=== PATIENT | male | born 1950 | race Caucasian/White ===

== ENCOUNTER 2023-08-11 14:03 | Emergency (ER) | payer OTHER, SELFPAY ==
[2023-08-11 14:23] VITALS: BP 139/84
[2023-08-11 14:50] LABS: % Basophils 0.9 % (0-2); % Eosinophils 1.1 % (0-6); % Immature Granulocytes 1.1 % (0-0.5); % Lymphocytes 19.4 % (20.5-51.1); % Neutrophils 62.5 % (42.2-75.2); Absolute Basophils 0.1 10^3/uL (0-0.2); Absolute Eosinophils 0.1 10^3/uL (0-0.7); Absolute Immature Granulocytes 0.1 10^3/uL (0-0.05); Absolute Lymphocytes 1.7 10^3/uL (1.2-3.4); Absolute Monocytes 1.3 10^3/uL (0.1-0.6); Absolute Neutrophils 5.6 10^3/uL (1.4-6.5); Hematocrit 47.8 % (39.0-52.0); Hemoglobin 16.5 g/dL (13.0-18.0); Mean Corp Hgb Conc. 34.5 g/dL (33.0-37.0); Mean Corpuscular Hgb 30.3 pg (27.0-31.0); Mean Corpuscular Volume 87.7 fL (80.0-94.0); Nucleated Red Blood Cells % 0 % (-); Platelet Count 208 10^3/uL (130-400); Red Blood Cell Count 5.45 10^6/uL (4.70-6.10); Red Cell Dist. Width 14.8 % (11.5-14.5); White Blood Cell Count 8.9 10^3/uL (4.8-10.8)
[2023-08-11 15:16] LABS: ALT (SGPT) 16 U/L (0-50); AST (SGOT) 28 U/L (17-59); Albumin 4.1 g/dl (3.5-5.0); Alkaline Phosphatase 71 U/L (38-126); Blood Urea Nitrogen 13 mg/dl (9-20); Calcium 9.2 mg/dl (8.4-10.2); Carbon Dioxide 25 mmol/L (22-30); Chloride 103 mmol/L (98-107); Glucose 107 mg/dl (70-99); Potassium 4.2 mmol/L (3.5-5.1); Sodium 135 mmol/L (135-145); Total Bilirubin 0.7 mg/dl (0.2-1.3); Total Protein 6.7 g/dl (6.3-8.2); eGFR > 60.00
[2023-08-11 15:35] VITALS: BP 142/85
[2023-08-11 16:00] VITALS: BP 143/90
[2023-08-11 17:16] VITALS: BP 149/82
[2023-08-11 18:00] VITALS: BP 127/87
--- NOTE | 2023-08-11 18:25 | ED.GENMED ---
History of Present Illness
General
Chief Complaint: Dizziness
Source: patient
Exam Limitations: none
Time Seen by Provider: 08/11/23 15:41
History of Present Illness
History of Present Illness:
73-year-old male who presents for evaluation of difficulty with his gait as well as an episode of speech disturbance. The patient states that he was on vacation in [place] and touring the last week of his vacation he started having difficulty with
his gait feeling off balance. He has had vertigo in the past but did not have any room spinning. Patient states he did not want to be seen in a [facility] hospital so waited till he got home. The patient states this has been ongoing for about 2 to
3 weeks. He states about 6 days ago had a very brief episode where he had slurring of his words. He states it was so brief that it may have only been about 4 words. Today he was coming into work and decided to get checked out. The patient denies
any progression of symptoms. He does report he has occasionally had some discomfort in the left neck up toward his head. Also a little bit in the back right side of his neck. No injury. No vomiting. No motor weakness. No vision changes. No
sensory changes. No chest pain. No palpitations.
Past History
Past History
ED Past Medical History: Cancer (Prostate) and Other (SBO, Diverticulitis)
ED Past Surgical History: Orthopedic ( Bilateral knee replacements, right hip replacement) and Other (prostatectomy, hernia)
Social History
Tobacco: Non-smoker
Alcohol: Occasional
Drug: None
Personal:
Living: with family
Employment: Retired
Family History
Family History: Other
Phy Exam
Physical Exam
Physical Exam:
CONSTITUTIONAL Patient alert and oriented to person, place and time. Well-appearing. Vital signs reviewed.
HEAD atraumatic, normocephalic.
EYES eyelids normal to inspection, Pupils equally round and reactive to light, Extraocular muscles intact, Conjunctiva normal, Sclera normal.
NECK normal range of motion, Trachea midline, no jugular venous distention.
RESPIRATORY CHEST No respiratory distress noted, Chest expansion equal, Bilateral breath sounds clear.
CARDIOVASCULAR regular rate and rhythm, Heart sounds normal.
BACK normal inspection, no obvious deformities
UPPER EXTREMITY range of motion normal, Motor strength normal, no cyanosis, no edema.
LOWER EXTREMITY range of motion normal, Motor strength normal, no cyanosis, no edema.
NEURO Speech normal, No focal motor deficits, Bhavna coma scale 15, Memory normal, Cranial Nerves intact to screening exam. Normal [id number]. No pronator drift.
SKIN skin warm, dry, and normal in color.
PSYCHIATRIC patient oriented to person place and time, Normal affect.
Course
Orders/Labs/Results
Orders:
Orders
08/11/23 14:26
Electrocardiogram (*1) Urgent
Reason for Study: Vertigo / Dizzy
08/11/23 14:27
CT Head W/o Iv Contrast Urgent
Comment: symptoms for 6 days.
Reason For Exam: headache, dizziness, 1 episode of slurred speech
EKG- Treatment ONCE
08/11/23 14:33
Complete Blood Count/With Diff Urgent
Comprehensive Metabolic Panel Urgent
08/11/23 16:18
CT Head & Neck Angio W/wo IV Urgent
Comment:
Reason For Exam: speech changes, neck pain, ataxia
Abnormal Lab Results
08/11/23
14:33
RDW 14.8 H %
(11.5-14.5)
Abs Immat Gran (auto) 0.1 H 10^3/uL
(0-0.05)
Absolute Monos (auto) 1.3 H 10^3/uL
(0.1-0.6)
Immature Gran % 1.1 H %
(0-0.5)
Lymphocytes % 19.4 L %
(20.5-51.1)
Monocytes % 15.0 H %
(1.7-9.3)
Glucose 107 H mg/dl
(70-99)
08/11/23 14:33
08/11/23 14:33
Vital Signs
Initial and Last Documented VS:
Initial Vital Signs
Temp Pulse Resp BP Pulse Ox
98.6 F 67 18 139/84 95
08/11/23 14:23 08/11/23 14:23 08/11/23 14:23 08/11/23 14:23 08/11/23 14:23
Last Documented Vital Signs
Temp Pulse Resp BP Pulse Ox
98.6 F 62 15 127/87 95
08/11/23 14:23 08/11/23 18:15 08/11/23 18:15 08/11/23 18:00 08/11/23 18:15
MDM/Problems Addressed
MDM/Problems Addressed:
Gait disturbance, speech disturbance
*Radiology
Radiology exam reviewed: preliminary read by ED provider (No obvious intracranial hemorrhage) and radiology read reviewed
*Pulse Oximetry
Patient hypoxic: no
*EKG
Interpreted by ED Provider?: Yes
Interpretation: normal
Rate: normal
Rhythm: sinus
Interval: normal interval
QRS Pattern: normal QRS
Ischemia: no ischemia
*Director Of Rehabilitation Interpretation
Rate: normal
Interpretation: normal
Rhythm: sinus
*Critical Care Note
Total Time (30-74mins, 75-104mins- exclusive of procedures): Not Applicable
Data Reviewed
Source: patient
Patient Management
Discussion with other providers: Stock Control Supervisor (Case discussed with neurology. )
Escalation/DeEscalation of care consider admission/obs:
Symptoms have been ongoing for a few weeks and speech disturbance was 6 days ago and was extremely brief. CT and CTA negative despite symptoms over the period of time. Case discussed with neurology who feels the patient can be managed as an
outpatient but will treat with aspirin 81 mg and Plavix 75 mg and neurology will follow-up in the office for outpatient studies. CTA shows no significant carotid stenosis. Patient educated and will return immediately for any progressive symptoms.
His gait is normal
ED Attending Note
-
Portions of this chart may have been created with voice recognition software.� Occasional wrong word or��sound alike� substitutions may have occurred due to the inherent limitations of voice recognition software.
Discharge Plan
Departure
Patient Disposition: Home (Routine Discharge)
Date of Disposition: 08/11/23
Time of Disposition: 18:46
Patient with high blood pressure during this ER visit?: No
Discharge Problem:
Abnormal gait
Instructions: Dizziness
Prescriptions:
New
aspirin 81 mg capsule
81 mg PO DAILY Qty: 30 0RF
clopidogrel [Plavix] 75 mg tablet
75 mg PO DAILY Qty: 30 0RF
No Action
diphenhydramine HCl [Banophen] 50 MG capsule
50 mg PO Q6HPRN PRN (Reason: hives, itch) Qty: 30 0RF
hydrocodone-acetaminophen 1 TABLET tablet
1 tab PO Q6HPRN PRN (Reason: SEVERE PAIN)
Patient Comments:
-PATIENT LASTED PICKED UP ON 01/08/20 # 40
fexofenadine [Oanh] 180 MG tablet
180 mg PO DAILY
propranolol 20 MG tablet
20 mg PO DAILY
pregabalin 75 MG capsule
75 mg BID
Patient Comments:
PATIENT LASTED PICKED UP ON 12/31/19 #60
acetaminophen 325 MG tablet
650 mg PO Q6HPRN PRN (Reason: MILD PAIN/FEVER)
hydrocodone-acetaminophen 1 TABLET tablet
1 tab PO Q4HPRN PRN (Reason: pain) Qty: 10 0RF
ciprofloxacin HCl [Cipro] 500 mg tablet
500 mg PO BID Qty: 14 0RF
metronidazole 500 mg tablet
500 mg PO TID Qty: 21 0RF
hydrocodone-acetaminophen 5-325 mg tablet
1 tab PO Q6H PRN (Reason: pain) Qty: 10 0RF
levofloxacin 750 mg tablet
750 mg PO DAILY Qty: 6 0RF
loperamide [Imodium A-D] 2 mg capsule
2 mg PO Q6H PRN (Reason: loose stool) Qty: 10 0RF
Referrals:
Alen Aquino MD [Active] -
Shayla Jefferson DO [Family Provider] -
Activity Restrictions/Additional Instructions:
Please see your doctor in the next 3 to 5 days for follow-up and reevaluation. In addition, please see neurology in follow-up in the next 2 weeks. Return immediately for difficulty with your vision, motor weakness, numbness, sensory changes,
worsening symptoms, speech changes or any other concerns.
Interventions
Interventions:
*Risk Screen - Suicide Last Done: 08/11/23 15:58
*General Assessment Last Done: 08/11/23 15:58
*Neglect/Abuse Screening Last Done: 08/11/23 15:58
ED- Fall Risk Assessment Last Done: 08/11/23 16:00
*ED COVID-19 Vaccine History Last Done: 08/11/23 15:58
ED- Neurological Assessment Last Done: 08/11/23 15:55
ED Swallowing Screen Last Done: 08/11/23 15:59
Discharge Date and Time
Print Language: AZERI
[2023-08-11] MEDS: PLAVIX 75 MG PO (18:51)
[2023-08-11] MEDS: LOW STRENGTH ASPIRIN 81 MG PO (18:51)
== END 2023-08-11 18:56 | disposition home or self-care (01) ==
LOC: EMR 14:03
PROVIDERS: Emergency Medicine; EMERGENCY PHYSICIAN Emergency Medicine; FAMILY PHYSICIAN Student in an Organized Health Care Education/Training Program
DX: R26.89 Other abnormalities of gait and mobility (principal); R47.81 Slurred speech; M54.2 Cervicalgia; R42 Dizziness and giddiness; K57.92 Diverticulitis of intestine, part unspecified, without perforation or abscess without bleeding; Z79.82 Long term (current) use of aspirin; Z96.653 Presence of artificial knee joint, bilateral; Z96.641 Presence of right artificial hip joint; Z85.46 Personal history of malignant neoplasm of prostate; Z90.79 Acquired absence of other genital organ(s); Z88.1 Allergy status to other antibiotic agents; Z88.0 Allergy status to penicillin; Z88.2 Allergy status to sulfonamides; Z91.048 Other nonmedicinal substance allergy status
CPT/HCPCS: 99285; 70450; 70496; 70498; 80053; 85025; 93005; Q9967

== ENCOUNTER → 2024-02-02 14:07 | Outpatient (REF) | payer OTHER, SELFPAY | LOC: PAVMRI 14:07 | PROVIDERS: ATTENDING PHYSICIAN Specialist | DX: R26.81 Unsteadiness on feet (principal) | CPT/HCPCS: 70551 ==

== ENCOUNTER → 2024-02-23 17:37 | Outpatient (REF) | payer OTHER, SELFPAY | LOC: MRI 17:37 | PROVIDERS: ATTENDING PHYSICIAN Specialist; FAMILY PHYSICIAN Internal Medicine | DX: M43.02 Spondylolysis, cervical region (principal) | CPT/HCPCS: 72141 ==

== ENCOUNTER → 2024-03-12 15:13 | Outpatient (REF) | payer OTHER, SELFPAY | LOC: RAD 15:13 | PROVIDERS: ATTENDING PHYSICIAN Family Medicine | DX: N28.1 Cyst of kidney, acquired (principal) | CPT/HCPCS: 76775 ==

== ENCOUNTER → 2024-12-04 15:22 | Outpatient (REF) | payer OTHER, SELFPAY | LOC: PAVMRI 15:22 | PROVIDERS: ATTENDING PHYSICIAN Physician Assistant Medical; FAMILY PHYSICIAN Family Medicine | DX: M54.16 Radiculopathy, lumbar region (principal) | CPT/HCPCS: 72148 ==

== ENCOUNTER 2025-01-24 13:11 | Inpatient (IN) | payer OTHER, SELFPAY ==
[2025-01-22] VITALS (14 sets, daily range): BP systolic 125–166; BP diastolic 70–96; BMI 30.6; BMI 33.8
--- NOTE | 2025-01-22 10:31 | ED.GENMED ---
History of Present Illness
<ELIEZER Bolaños - Last Filed: 01/24/25 09:03>
General
Chief Complaint: Breathing Problem
Source: patient
Exam Limitations: none
Time Seen by Provider: 01/22/25 09:58
Nursing documentation reviewed up to this point in time: agreed with
History of Present Illness
History of Present Illness:
Patient is a 75-year-old male male presents to the ER for evaluation. Patient reports last night while walking [id number] bathroom he became very short of breath and had pressure in the left neck and left chest. He has no known cardiac history
that he is aware of however he questions if he was once told if he has' plaque in his heart.' He is asymptomatic presently. He denies any history of CHF no lower extremity swelling.
Past History
<ELIEZER Bolaños - Last Filed: 01/24/25 09:03>
Past History
ED Past Medical History: Cancer (Prostate) and Other (SBO, Diverticulitis)
ED Past Surgical History: Orthopedic ( Bilateral knee replacements, right hip replacement) and Other (prostatectomy, hernia)
Social History
Tobacco: Non-smoker
Alcohol: Occasional
Drug: None
Personal:
Living: with family
Employment: Retired
Family History
Family History: Other
Phy Exam
<ELIEZER Bolaños - Last Filed: 01/24/25 09:03>
General Physical Exam
General Presentation: no apparent distress
General age: appears stated age
General Skin: warm and dry
General Habitus: elderly
General Mental: alert
Cardiovascular Exam
Cardiovascular Exam: regular rate/rhythm, no murmur and normal peripheral pulses
Pulmonary Exam
Pulmonary Exam: lungs clear and no respiratory distress
Neurological Exam
Neurological Exam: alert and oriented x3
Musculoskeletal Exam
Musculoskeletal Exam: other (No lower extremity swelling b/l )
Skin Exam
Skin Exam: normal color and warm/dry
Psychiatric Exam
Psychiatric Exam: normal mood/affect
Scores
<Mic Dawson PA-C - Last Filed: 01/22/25 21:20>
Heart Failure Risk
Heart Failure Risk Score: Not Applicable
Course
<ELIEZER Bolaños - Last Filed: 01/24/25 09:03>
Orders/Labs/Results
Orders:
Orders
01/22/25 09:52
Electrocardiogram (*1) Urgent
Reason for Study: Chest Pain
EKG- Treatment ONCE
01/22/25 10:06
CR Chest - 2 Views Urgent
Comment:
Reason For Exam: shortness of breath
01/22/25 10:20
Complete Blood Count/With Diff Urgent
Comprehensive Metabolic Panel Urgent
Magnesium Urgent
NT-proBNP Urgent
Troponin I Urgent
01/22/25 13:03
Electrocardiogram (*1) Urgent
Reason for Study: Chest Pain
EKG- Treatment ONCE
01/22/25 13:18
Troponin I Urgent
01/22/25 14:30
CT Chest PE Study Urgent
Comment:
Reason For Exam: SOB
01/22/25 Dinner
Regular
At Your Request: Limited Participation
Does patient need a safe tray?: No
01/22/25 16:44
Admit/Transfer Patient As Directed
Co-Sign Provider:
Level of Care: Observation services
Assign to:: Telemetry
Physician / Group: marshall
Diagnosis: stable angina
Reason for Telemetry: Arrhythmia
Date to Stop Telemetry: 01/25/25
Time to Stop Telemetry: 11:00
Code Status As Directed
Resuscitation Status: Full Code
PRN Pain Medication Management As Directed
May give lesser potent ordered pain med per pt: Yes
preference::
Protocol:: Medication orders for pain may be administered in a
manner that supports deferring to patient preference
when the pt is:
- Requesting an ordered lesser potent pain medication.
Least to most potent pain medications are defined
as: acetaminophen < NSAID < tramadol < opioids
(morphine, oxycodone, hydromorphone).
- Requesting a lesser dose of the same medication IF
ORDERED.
- Requesting a less intrusive route of administration
if both routes are prescribed by the provider (PO <
IV).
01/22/25 17:59
CARDIOLOGY CONSULT Routine
Consulting Provider: Ashley Nation
Was physician already notified: Yes
Activity As Directed
Activity Level: As Tolerated
Vital Signs As Directed
Frequency: Per unit guidelines
DX Deep Vein Thrombosis Video Routine
01/22/25 18:53
Naproxen [Naprosyn] 500 mg PO DAILYPRN PRN
01/22/25 19:14
Troponin I Q6H
01/22/25 20:00
Heparin 5,000 units SC Q12
Propranolol [Inderal] 20 mg PO BID
fluticasone propionate 1 spray NASAL BID
01/22/25 22:00
Pregabalin [Lyrica] 50 mg PO TID
01/22/25 23:59
Troponin I Q6H
01/23/25 06:22
Complete Blood Count/With Diff IN AM
Troponin I Q6H
01/23/25 08:00
Aspirin Chewable [Low Strength Aspirin] 81 mg PO DAILY
Loratadine [Claritin] 10 mg PO DAILY
01/25/25 11:00
DC Protocol for Telemetry ONCE
Abnormal Lab Results
01/22/25
10:20
Abs Immat Gran (auto) 0.1 H 10^3/uL
(0-0.05)
Absolute Neuts (auto) 6.9 H 10^3/uL
(1.4-6.5)
Absolute Monos (auto) 1.0 H 10^3/uL
(0.1-0.6)
Immature Gran % 1.0 H %
(0-0.5)
Lymphocytes % 15.9 L %
(20.5-51.1)
Monocytes % 10.4 H %
(1.7-9.3)
Creatinine 0.6 L mg/dL
(0.7-1.3)
01/22/25 10:20
01/22/25 10:20
Vital Signs
Initial and Last Documented VS:
Initial Vital Signs
Temp Pulse Resp BP Pulse Ox
97.6 F 70 20 166/89 98
01/22/25 09:47 01/22/25 09:47 01/22/25 09:47 01/22/25 09:47 01/22/25 09:47
Last Documented Vital Signs
Temp Pulse Resp BP Pulse Ox
98 F 65 18 126/71 93
01/24/25 08:33 01/24/25 08:33 01/24/25 08:33 01/24/25 08:33 01/24/25 08:33
Pasta Maker consulted with Physician
Pasta Maker consulted with physician?: Yes
Name of Physician Consulted: sidney
<Bandar Dinero, DO - Last Filed: 01/22/25 13:17>
Orders/Labs/Results
Orders:
Orders
01/22/25 09:52
Electrocardiogram (*1) Urgent
Reason for Study: Chest Pain
EKG- Treatment ONCE
01/22/25 10:06
CR Chest - 2 Views Urgent
Comment:
Reason For Exam: shortness of breath
01/22/25 10:20
Complete Blood Count/With Diff Urgent
Comprehensive Metabolic Panel Urgent
Magnesium Urgent
NT-proBNP Urgent
Troponin I Urgent
01/22/25 13:03
Electrocardiogram (*1) Urgent
Reason for Study: Chest Pain
EKG- Treatment ONCE
01/22/25 13:18
Troponin I Urgent
01/22/25 14:30
CT Chest PE Study Urgent
Comment:
Reason For Exam: SOB
01/22/25 Dinner
Regular
At Your Request: Limited Participation
Does patient need a safe tray?: No
01/22/25 16:44
Admit/Transfer Patient As Directed
Co-Sign Provider:
Level of Care: Observation services
Assign to:: Telemetry
Physician / Group: marshall
Diagnosis: stable angina
Reason for Telemetry: Arrhythmia
Date to Stop Telemetry: 01/25/25
Time to Stop Telemetry: 11:00
Code Status As Directed
Resuscitation Status: Full Code
PRN Pain Medication Management As Directed
May give lesser potent ordered pain med per pt: Yes
preference::
Protocol:: Medication orders for pain may be administered in a
manner that supports deferring to patient preference
when the pt is:
- Requesting an ordered lesser potent pain medication.
Least to most potent pain medications are defined
as: acetaminophen < NSAID < tramadol < opioids
(morphine, oxycodone, hydromorphone).
- Requesting a lesser dose of the same medication IF
ORDERED.
- Requesting a less intrusive route of administration
if both routes are prescribed by the provider (PO <
IV).
01/22/25 17:59
CARDIOLOGY CONSULT Routine
Consulting Provider: Ashley Nation
Was physician already notified: Yes
Activity As Directed
Activity Level: As Tolerated
Vital Signs As Directed
Frequency: Per unit guidelines
DX Deep Vein Thrombosis Video Routine
01/22/25 18:53
Naproxen [Naprosyn] 500 mg PO DAILYPRN PRN
01/22/25 19:14
Troponin I Q6H
01/22/25 20:00
Heparin 5,000 units SC Q12
Propranolol [Inderal] 20 mg PO BID
fluticasone propionate 1 spray NASAL BID
01/22/25 22:00
Pregabalin [Lyrica] 50 mg PO TID
01/22/25 23:59
Troponin I Q6H
01/23/25 06:22
Complete Blood Count/With Diff IN AM
Troponin I Q6H
01/23/25 08:00
Aspirin Chewable [Low Strength Aspirin] 81 mg PO DAILY
Loratadine [Claritin] 10 mg PO DAILY
01/25/25 11:00
DC Protocol for Telemetry ONCE
Abnormal Lab Results
01/22/25
10:20
Abs Immat Gran (auto) 0.1 H 10^3/uL
(0-0.05)
Absolute Neuts (auto) 6.9 H 10^3/uL
(1.4-6.5)
Absolute Monos (auto) 1.0 H 10^3/uL
(0.1-0.6)
Immature Gran % 1.0 H %
(0-0.5)
Lymphocytes % 15.9 L %
(20.5-51.1)
Monocytes % 10.4 H %
(1.7-9.3)
Creatinine 0.6 L mg/dL
(0.7-1.3)
01/22/25 10:20
01/22/25 10:20
Vital Signs
Initial and Last Documented VS:
Initial Vital Signs
Temp Pulse Resp BP Pulse Ox
97.6 F 70 20 166/89 98
01/22/25 09:47 01/22/25 09:47 01/22/25 09:47 01/22/25 09:47 01/22/25 09:47
Last Documented Vital Signs
Temp Pulse Resp BP Pulse Ox
98 F 65 18 126/71 93
01/24/25 08:33 01/24/25 08:33 01/24/25 08:33 01/24/25 08:33 01/24/25 08:33
<Mic Dawson PA-C - Last Filed: 01/22/25 21:20>
Orders/Labs/Results
Orders:
Orders
01/22/25 09:52
Electrocardiogram (*1) Urgent
Reason for Study: Chest Pain
EKG- Treatment ONCE
01/22/25 10:06
CR Chest - 2 Views Urgent
Comment:
Reason For Exam: shortness of breath
01/22/25 10:20
Complete Blood Count/With Diff Urgent
Comprehensive Metabolic Panel Urgent
Magnesium Urgent
NT-proBNP Urgent
Troponin I Urgent
01/22/25 13:03
Electrocardiogram (*1) Urgent
Reason for Study: Chest Pain
EKG- Treatment ONCE
01/22/25 13:18
Troponin I Urgent
01/22/25 14:30
CT Chest PE Study Urgent
Comment:
Reason For Exam: SOB
01/22/25 Dinner
Regular
At Your Request: Limited Participation
Does patient need a safe tray?: No
01/22/25 16:44
Admit/Transfer Patient As Directed
Co-Sign Provider:
Level of Care: Observation services
Assign to:: Telemetry
Physician / Group: marshall
Diagnosis: stable angina
Reason for Telemetry: Arrhythmia
Date to Stop Telemetry: 01/25/25
Time to Stop Telemetry: 11:00
Code Status As Directed
Resuscitation Status: Full Code
PRN Pain Medication Management As Directed
May give lesser potent ordered pain med per pt: Yes
preference::
Protocol:: Medication orders for pain may be administered in a
manner that supports deferring to patient preference
when the pt is:
- Requesting an ordered lesser potent pain medication.
Least to most potent pain medications are defined
as: acetaminophen < NSAID < tramadol < opioids
(morphine, oxycodone, hydromorphone).
- Requesting a lesser dose of the same medication IF
ORDERED.
- Requesting a less intrusive route of administration
if both routes are prescribed by the provider (PO <
IV).
01/22/25 17:59
CARDIOLOGY CONSULT Routine
Consulting Provider: Ashley Nation
Was physician already notified: Yes
Activity As Directed
Activity Level: As Tolerated
Vital Signs As Directed
Frequency: Per unit guidelines
DX Deep Vein Thrombosis Video Routine
01/22/25 18:53
Naproxen [Naprosyn] 500 mg PO DAILYPRN PRN
01/22/25 19:14
Troponin I Q6H
01/22/25 20:00
Heparin 5,000 units SC Q12
Propranolol [Inderal] 20 mg PO BID
fluticasone propionate 1 spray NASAL BID
01/22/25 22:00
Pregabalin [Lyrica] 50 mg PO TID
01/22/25 23:59
Troponin I Q6H
01/23/25 06:22
Complete Blood Count/With Diff IN AM
Troponin I Q6H
01/23/25 08:00
Aspirin Chewable [Low Strength Aspirin] 81 mg PO DAILY
Loratadine [Claritin] 10 mg PO DAILY
01/25/25 11:00
DC Protocol for Telemetry ONCE
Abnormal Lab Results
01/22/25
10:20
Abs Immat Gran (auto) 0.1 H 10^3/uL
(0-0.05)
Absolute Neuts (auto) 6.9 H 10^3/uL
(1.4-6.5)
Absolute Monos (auto) 1.0 H 10^3/uL
(0.1-0.6)
Immature Gran % 1.0 H %
(0-0.5)
Lymphocytes % 15.9 L %
(20.5-51.1)
Monocytes % 10.4 H %
(1.7-9.3)
Creatinine 0.6 L mg/dL
(0.7-1.3)
01/22/25 10:20
01/22/25 10:20
Vital Signs
Initial and Last Documented VS:
Initial Vital Signs
Temp Pulse Resp BP Pulse Ox
97.6 F 70 20 166/89 98
01/22/25 09:47 01/22/25 09:47 01/22/25 09:47 01/22/25 09:47 01/22/25 09:47
Last Documented Vital Signs
Temp Pulse Resp BP Pulse Ox
98 F 65 18 126/71 93
01/24/25 08:33 01/24/25 08:33 01/24/25 08:33 01/24/25 08:33 01/24/25 08:33
<ELIEZER Bolaños - Last Filed: 01/24/25 09:03>
MDM/Problems Addressed
Differential Diagnosis Includes:
Not limited to ACS angina, PE, chf
MDM/Problems Addressed:
Patient is a 75-year-old male presents to the ER for evaluation of shortness of breath and chest discomfort he had last night. He reports he was short breath left neck chest area. Patient presented awake alert no acute patient to cardiac troponin
initial 0.013 and repeat was improved. No acute findings on EKG. Patient on exam however became very short breath with ambulation with persistent symptoms patient will require mission will order CT chest to rule out PE. No prior history of PE in
the past . Lungs are clear he has no lower extremity swelling no history of CHF x-ray shows a very small left pleural effusion.
1540: Care of patient at this time transferred to JANINE Alfonso. pt will need admission for chest pain shortness of breath possible angina type symptoms however CT pending ordered to rule out PE dyspnea.
<ELIEZER Bolaños - Last Filed: 01/24/25 09:03>
*Radiology
Radiology exam reviewed: radiology read reviewed
*Pulse Oximetry
SaO2: 95
Oxygen Mode of Delivery: Room air
*EKG
Interpreted by ED Provider?: Yes
Interpretation: normal
Heart Rate: 64
Rate: normal
Rhythm: sinus
Ischemia: no ischemia
<Mic Dawson PA-C - Last Filed: 01/22/25 21:20>
*Pulse Oximetry
Patient hypoxic: no
*Critical Care Note
Total Time (30-74mins, 75-104mins- exclusive of procedures): Not Applicable
<Mic Dawson PA-C - Last Filed: 01/22/25 21:20>
Patient Management
Discussion with other providers: Hospitalist
Escalation/DeEscalation of care consider admission/obs:
Patient received in sign out pending CT scan results and plan for admission.
CTA negative for PE. Hospitalist team notified for admission of anginal symptoms
ED Attending Note
<ELIEZER Bolaños - Last Filed: 01/24/25 09:03>
-
Portions of this chart may have been created with voice recognition software.� Occasional wrong word or��sound alike� substitutions may have occurred due to the inherent limitations of voice recognition software.
<Bandar Dinero DO - Last Filed: 01/22/25 13:17>
ED Attending Note
Patient seen and examined by attending physician: Yes
I performed the substantive portion of visit, reviewed & personally made and approve the management plan that is documented in note by myself or NADEEM.: Yes
ED Attending Note:
Seen with PATIENT ADMITTING REPRESENTATIVE examined independently 75-year-old male presents with shortness of breath pressure into his neck, also slight headache and swelling above his left eye symptoms started about a day ago, he was hunting over the weekend felt okay, here he
is asymptomatic, EKG and troponin are noted, will repeat also ambulate is no history of heart failure or CAD
Discharge Plan
Departure
Patient Disposition: Admit
Date of Disposition: 01/22/25
Time of Disposition: 16:16
Presentation/result/management discussed w/ accepting MD/DO: Hospitalist
Discharge Problem:
Angina pectoris
Interventions
Interventions:
*Risk Screen - Suicide Last Done: 01/22/25 09:48
*General Assessment Last Done: 01/22/25 09:47
*Neglect/Abuse Screening Last Done: 01/22/25 09:47
*ED COVID-19 Vaccine History Last Done: 01/22/25 10:24
*ED Influenza Vaccine History Last Done: 01/22/25 10:24
[facility] Fall Risk Assessment Tool Last Done: 01/22/25 10:24
*Nursing Disposition Last Done: 01/22/25 17:28
ED- Cardiac Assessment Last Done: 01/22/25 10:24
ED- Pulmonary Assessment Last Done: 01/22/25 10:24
Discharge Date and Time
Discharge Date/Time: 01/22/25 17:59
[2025-01-22 10:34] LABS: Hematocrit 45.0 % (39.0-52.0); Hemoglobin 15.3 g/dL (13.0-18.0); Mean Corp Hgb Conc. 34.0 g/dL (33.0-37.0); Mean Corpuscular Volume 87.5 fL (80.0-94.0); Nucleated Red Blood Cells % 0 % (-); Platelet Count 228 10^3/uL (130-400); Red Cell Dist. Width 14.4 % (11.5-14.5)
[2025-01-22 10:58] LABS: ALT (SGPT) 16 U/L (0-50); AST (SGOT) 20 U/L (17-59); Albumin 3.9 g/dl (3.5-5.0); Alkaline Phosphatase 71 U/L (38-126); Blood Urea Nitrogen 12 mg/dl (9-20); Calcium 8.7 mg/dl (8.4-10.2); Carbon Dioxide 27 mmol/L (22-30); Chloride 106 mmol/L (98-107); Estimated Creatinine Clearance 113 ml/min; Glucose 93 mg/dl (70-99); Magnesium 2.1 mg/dl (1.6-2.3); Potassium 4.1 mmol/L (3.5-5.1); Sodium 137 mmol/L (135-145); Total Protein 6.7 g/dl (6.3-8.2); eGFR > 60.00
[2025-01-22 11:04] LABS: Troponin I 0.013 ng/ml
[2025-01-22 13:50] LABS: Troponin I < 0.012 ng/ml
--- NOTE | 2025-01-22 16:32 | EDRN ---
hospitalist currently at the pts bedside
--- NOTE | 2025-01-22 16:48 | HPS.HSE ---
Family Physician
-
Family Physician: Ozzy Escalona DO
Chief Complaint
-
neck/chest pain
History of Present Illness
75-year-old male past medical history of prostate cancer status post prostatectomy, prediabetes, diverticulosis, diverticulitis, hyperlipidemia, osteoarthritis, lumbar stenosis, chronic neuropathy, obesity, essential tremor, presenting with left
anterior neck pressure which radiates down to the left upper chest that started yesterday as well as shortness of breath that only occurs with exertion. He denies any symptoms currently or at rest. He did have sweating last night. He did have
dizziness since yesterday. He denies any posterior neck pain. Denies nausea or vomiting. Denies swallowing dysfunction at this time. Denies numbness or tingling in the arms or legs. Denies swelling in the legs.
He had pain like this previously in the past which resolved on its own.
He denies smoking or alcohol use or drugs.
Medical History
Past Medical History
Past Medical History: Reports Other (prostate cancer status post prostatectomy, prediabetes, diverticulosis, diverticulitis, hyperlipidemia, osteoarthritis, lumbar stenosis, chronic neuropathy, obesity, essential tremor)
Past Surgical History: Reports Other (Orthopedic ( Bilateral knee replacements, right hip replacement) and Other (prostatectomy, hernia))
Social History
Tobacco: Non-smoker
Alcohol: None
Drug: None
Family History
Family History: Not pertinent
Allergies / Home Medications
Allergies reflects when Allergies were last updated in [employer].
Home Medications with original date entered in [employer]
Allergy/Medication List:
Allergies
Allergy/AdvReac Type Severity Reaction Status Date / Time
erythromycin base Allergy kiki hyman Verified 01/22/25 09:52
ing
insect venom Allergy Anaphylaxis Verified 01/22/25 09:52
penicillin G Allergy Anaphylaxis Verified 01/22/25 09:52
Penicillins Allergy Anaphylaxis Verified 01/22/25 09:52
Sulfa (Sulfonamide Allergy Hives,swell Verified 01/22/25 09:52
Antibiotics) ing
sulfamethoxazole Allergy hives,swell Verified 01/22/25 09:52
ing
Tetracyclines Allergy hives,swell Verified 01/22/25 09:52
ing
trimethoprim Allergy PART OF Verified 01/22/25 09:52
BACTRIM
seasonal Allergy nasal Uncoded 01/22/25 09:52
congestion
Home Medications
propranolol 20 mg tablet 20 mg PO BID Tremors 01/18/20
fexofenadine 180 mg tablet 180 mg PO DAILY 01/22/25
fluticasone propionate 50 mcg/actuation nasal spray,suspension 1 spray intranasal BID Congestion 01/22/25
naproxen sodium 220 mg tablet (Aleve) 440 mg PO DAILYPRN PRN Back pain 01/22/25
pregabalin 50 mg capsule 50 mg PO TID Pain 01/22/25
Review of Systems
-
Constitutional: Reports No Symptoms
EENT: Reports No Symptoms
Respiratory: Reports No Symptoms
Cardiac: Reports No Symptoms
Abdomen/GI: Reports No Symptoms
: Reports No Symptoms
Musculoskeletal: Reports No Symptoms
Skin: Reports No Symptoms
Neurological: Reports No Symptoms
Endocrine: Reports No Symptoms
Hematologic/Lymphatic: Reports No Symptoms
Psych: Reports No Symptoms
Physical Exam
Vital Signs
Vital Signs
Temp Pulse Resp BP Pulse Ox
98.2 F 65 17 141/87 94
01/22/25 13:13 01/22/25 15:30 01/22/25 15:30 01/22/25 15:00 01/22/25 15:30
Physical Exam
General: Well Developed, Well Nourished and No Apparent Distress
HEENT: NormoCephalic, Moist mucous membranes and Atraumatic
Respiratory: Clear
Cardiac: S1/S2 and Regular Rhythm; No Murmur or Rub
GI: Soft, Non Tender, Non Distended and Normal Bowel Sounds; No Organomegaly
Rectal: Deferred by Provider
Musculoskeletal: No Clubbing, No Cyanosis and No Edema
Skin: No Rash
Neuro: Nonfocal/grossly intact
Laboratory Results
-
01/22/25 10:20
01/22/25 10:20
Laboratory Results
Total Bilirubin 0.6 mg/dl (0.2-1.3) 01/22/25 10:20
AST 20 U/L (17-59) 01/22/25 10:20
ALT 16 U/L (0-50) 01/22/25 10:20
Alkaline Phosphatase 71 U/L (38-126) 01/22/25 10:20
Troponin I < 0.012 ng/ml 01/22/25 13:18
Data Reviewed
-
Lab Data: Labs Reviewed by me
Old Records: Reviewed
Impression/Plan
-
IMPRESSION:
PLAN:
# Left chest/neck discomfort/shortness of breath suggestive of stable angina
-No symptoms currently, no tenderness of the neck or chest
- EKG shows normal sinus rhythm
- Troponin 0.013, decreased to under 0.012 on second
-Start aspirin
- Cardiology consulted
Prostate cancer status post prostatectomy
Prediabetes
- Not on medication
Diverticulosis
History of diverticulitis
Osteoarthritis
- Continue naproxen
Lumbar stenosis/chronic neuropathy
- Continue pregabalin
History of essential tremor
- Continue propranolol
Obesity
Full code
DVT prophylaxis�heparin
Regular diet
--- NOTE | 2025-01-22 17:26 | EDRN ---
this RN called the receiving unit and notified them that paper report was going to be tubed up
--- NOTE | 2025-01-22 17:43 | EDCM ---
Reviewed chart and met with pt bedside in ED> Lives with his in one story home, no GLADIS.
Independent in ADLs, personal care and ambulation at baseline. No assistive devices. 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
Confirms prescription coverage.
REED reviewed and signed, copy left with pt's .
No hx VN, hx Devine after knee replacements
PCP: Ozzy Escalona
Pharmacy: [facility]
Anticipate discharge home, CM will continue to follow for all discharge planning needs.
[2025-01-22] MEDS: LYRICA 50 MG PO ×2 (17:50→21:06)
--- NOTE | 2025-01-22 18:22 | PTCARENOTE ---
Rn materials coordinator- Patient's admission assessment completed remotely via phone. Patient qualifies as fall risk. Primary nurse Juanita informed of this and states she will implement appropriate interventions.
[2025-01-22 19:54] LABS: Troponin I 0.015 ng/ml
[2025-01-22] MEDS: INDERAL 20 MG PO (20:02)
[2025-01-23 01:26] LABS: Troponin I 0.014 ng/ml
[2025-01-23 03:35] VITALS: BP 124/58
[2025-01-23 06:48] LABS: Hematocrit 45.0 % (39.0-52.0); Hemoglobin 15.3 g/dL (13.0-18.0); Mean Corp Hgb Conc. 34.0 g/dL (33.0-37.0); Mean Corpuscular Volume 88.6 fL (80.0-94.0); Nucleated Red Blood Cells % 0 % (-); Platelet Count 206 10^3/uL (130-400); Red Cell Dist. Width 14.4 % (11.5-14.5)
[2025-01-23 07:19] LABS: Troponin I < 0.012 ng/ml
[2025-01-23 07:20] VITALS: BP 141/80
--- NOTE | 2025-01-23 08:14 | W.PN.HOSP.TC ---
Today's Communication/Plan
-
Echo done, follows cardiology recommendations.
Assessment / Plan
Assessment / Plan
Impression:
75-year-old male past medical history of prostate cancer status post prostatectomy, prediabetes, diverticulosis, diverticulitis, hyperlipidemia, osteoarthritis, lumbar stenosis, chronic neuropathy, obesity, essential tremor, presenting with left
anterior neck pressure which radiates down to the left upper chest that started yesterday as well as shortness of breath that only occurs with exertion. He denies any symptoms currently or at rest. He did have sweating last night. He did have
dizziness since yesterday. He denies any posterior neck pain. Denies nausea or vomiting. Denies swallowing dysfunction at this time. Denies numbness or tingling in the arms or legs. Denies swelling in the legs.
He had pain like this previously in the past which resolved on its own.
He denies smoking or alcohol use or drugs.
Assessment/plan:
Chest/Neck Discomfort & Exertional Dyspnea � Likely Stable Angina
Currently asymptomatic; no tenderness on exam.
EKG: Normal sinus rhythm.
Troponin: Initial 0.013 peaked to 0.015 then back to baseline <0.012.
Plan:
aspirin.
Cardiology consulted
Echocardiogram shows:
1. Ejection fraction is 55-60% by visual assessment.
2. Indexed left atrial volume is mildly abnormal (35-41 ml/m2).
3. Mild concentric left ventricular hypertrophy.
Follows cardio recommendations
Patient never had cardiac cath but had a stress test done years ago.
Prostate Cancer (s/p Prostatectomy)
No acute issues.
Prediabetes
Not on medication; monitor.
Diverticulosis / History of Diverticulitis
No acute symptoms.
Osteoarthritis
Continue naproxen.
Lumbar Stenosis / Chronic Neuropathy
Continue pregabalin.
Essential Tremor
Continue propranolol.
Obesity
Lifestyle modification counseling as appropriate.
CODE STATUS: Full code
DVT prophylaxis: Heparin
Diet: Regular diet
Disposition: Echo done, follows cardiology recommendations.
Total time spent on today's encounter was 51 minutes which included time spent in counseling the patient/family regarding diagnosis and treatment plan as listed above, goals of care, and symptom management. Case was discussed with nursing staff,
specialists, and care coordinators/case management. All labs and imaging personally reviewed by me. Remainder the time spent in detailed review of previous records, lab data, imaging, and other medical provider documentation.
Anticipated Discharge: 24 - 48 hours
Subjective/Interval History
-
Date of Service: January 23, 2025
Patient seen and examined at bedside, improved chest pain, still with shortness of breath on exertion, no abdominal pain, no nausea, no vomiting, no diarrhea or constipation.
Objective Data
-
Labs:
Laboratory Results
01/23/25 01/23/25
06:22 08:04
WBC 7.4
Hgb 15.3
Hct 45.0
Plt Count 206
Sodium Cancelled Pending
Potassium Cancelled Pending
Chloride Cancelled Pending
Carbon Dioxide Cancelled Pending
BUN Cancelled Pending
Creatinine Cancelled Pending
Glucose Cancelled Pending
Calcium Cancelled Pending
Vital Signs:
Vital Signs
Temp Pulse Resp BP Pulse Ox
97.9 F 56 18 124/58 94
01/23/25 03:35 01/23/25 03:35 01/23/25 03:35 01/23/25 03:35 01/23/25 03:35
I&O
01/22/25 01/23/25 01/24/25
06:59 06:59 06:59
Intake Total 480 / 480
Balance 480 / 480
Physical Exam
-
General: Well Developed, Well Nourished, No Apparent Distress and Comfortable
HEENT: Normocephalic, Atraumatic, Moist Mucous Membranes, No Ptosis, PERRLA and Nose Appears Normal
Respiratory: Clear to Auscultation and Non Labored Respirations
Cardiac: Regular Rhythm and S1/S2
Breast: Deferred by me
GI: Soft, Nontender, Nondistended and Normal Bowel Sounds
Genito-urinary: No Costovertebral Tender
Musculoskeletal: No Clubbing, No Cyanosis and No Edema
Skin: Warm
Neuro: Awake, Alert, Oriented, AO x 3 and No Motor Deficits
Psych: Calm
Data Reviewed
-
Diagnostic Radiology: Image personally visualized and interpreted and Report Reviewed by me
CT Scan: Image personally visualized and interpreted and Report Reviewed by me
Ultrasound: Image personally visualized and interpreted and Report Reviewed by me
MRI: Image personally visualized and interpreted and Report Reviewed by me
Medical Tests (Nuc Med, Echo etc): Image personally visualized and interpreted and Report Reviewed by me
Labs: Labs Reviewed by me
Old Records: Reviewed
[2025-01-23] MEDS: LOW STRENGTH ASPIRIN 81 MG PO (09:19)
[2025-01-23] MEDS: INDERAL 20 MG PO ×2 (09:19→19:49)
[2025-01-23] MEDS: CLARITIN 10 MG PO (09:19)
[2025-01-23] MEDS: LYRICA 50 MG PO ×3 (09:20→20:55)
--- NOTE | 2025-01-23 09:43 | CON.CAR ---
Addendum entered and electronically signed by Satya Guillaume MD 01/23/25 15:08:
Patient has documented sulfa allergy
Will give one-time dose of ethacrynic acid in place of Lasix
Addendum entered and electronically signed by Satya Guillaume MD 01/23/25 15:00:
I saw and examined the patient.
The Mud Grinder's note was reviewed and I agree with the note.
Comment: Briefly, 75-year-old man with no significant cardiovascular history presenting to the ER for evaluation of chest discomfort and dyspnea
It seems that his symptoms initially started as shortness of breath which came on the evening of 01/21/2025
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 At that time was also experiencing pressure in the shoulder/neck. He was admitted for possible ACS.
Troponin has been within normal limits x 5
ECGs here are not acutely ischemic
Underwent CTA with no evidence of PE
Echo with normal LV function and no regional wall motion abnormalities
Would tentatively plan for pharmacologic nuclear stress test in a.m. to evaluate for ischemia as a cause of his symptoms
Possible there is some component of heart failure given elevated proBNP of 1330
Will treat with IV Lasix x 1 and assess response
Rest per Keara Lin
Original Note:
Consultation
Consultation Request
Date/Time Consultation Requested: 01/22/25 at 1759
Date/Time Consultation Performed: 01/23/25 at 1004
Requesting Provider: Dr. Florencia Mcclure
Performing Provider: Dr. Guillaume
Reason for Consultation: Chest pain, SOB
Medical History
-
History of Present Illness:
Patient came to the ER yesterday with complaints of FULTON and chest pressure prompting admission and cardiology consultation. Patient came to the ER yesterday for episodes of FULTON, SOB and chest pressure. Patient reports he had a normal day on Tuesday
and then while sleeping on Tuesday night into Tuesday he awoke to empty his bladder, which is not unusual for him, and when he ambulated back to bed he became profoundly SOB and laid in bed trying to catch his breath. No chest pain with that
episode, but it took him almost an hour before his breathing returned to normal and he eventually fell asleep. When the patient woke up yesterday, Tuesday, he had FULTON with all activity and then started with episodes of chest pressure radiating from
his neck/jaw down into the left shoulder and chest. He has never had symptoms like this before. Patient then started with resting SOB while driving into work. 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
he came to the ER for evaluation. Patient was just hunting in [place] last week which included climbing, hiking and long walks without any symptoms of chest pain or SOB. He never has symptoms like this and it is unusual for him. Troponin level
normal x 5. ECG without acute ischemic change. Patient was admitted. Patient had intermittent episodes of chest discomfort overnight and has ongoing FULTON whenever he shifts himself in bed. CT of the chest was negative for PE. proBNP was 1330,
but no evidence of acute HF on CXR or CT of chest.
PMH:
Prediabetes
Essential tremor
Past Medical History
Past Medical History: Other (in HPI)
Past Surgical History: Orthopedic (Spinal fusion, SHANNA) and Urological (Prostatectomy)
Social History
Tobacco: Non-Smoker
Alcohol: Occasional
Drug: None
Personal:
Living: With Family
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
Family History
Family History: Other (No family history of CAD)
Allergies / Home Medications
Allergy/AdvReac Type Severity Reaction Status Date / Time
erythromycin base Allergy kiki hyamn Verified 01/22/25 09:52
ing
insect venom Allergy Anaphylaxis Verified 01/22/25 09:52
penicillin G Allergy Anaphylaxis Verified 01/22/25 09:52
Penicillins Allergy Anaphylaxis Verified 01/22/25 09:52
pollen extracts Allergy SEASONAL-NASAL Verified 12/02/25 18:48
CONGESTION
Sulfa (Sulfonamide Allergy Hives,swell Verified 01/22/25 09:52
Antibiotics) ing
sulfamethoxazole Allergy hives,swell Verified 01/22/25 09:52
ing
Tetracyclines Allergy hives,swell Verified 01/22/25 09:52
ing
trimethoprim Allergy PART OF Verified 01/22/25 09:52
BACTRIM
�Medication �Instructions �Recorded �Confirmed �Type
propranolol 20 mg tablet 20 mg PO BID Tremors 01/18/20 01/22/25 History
fexofenadine 180 mg tablet 180 mg PO DAILY 01/22/25 01/22/25 History
fluticasone propionate 50 1 spray intranasal BID Congestion 01/22/25 01/22/25 History
mcg/actuation nasal
spray,suspension
naproxen sodium 220 mg tablet 440 mg PO DAILYPRN PRN Back pain 01/22/25 01/22/25 History
(Aleve)
pregabalin 50 mg capsule 50 mg PO TID Pain 01/22/25 01/22/25 History
Review of Systems
-
History Source: Patient
All other systems: Negative unless noted
Physical Exam
Vital Signs
Temp Pulse Resp BP Pulse Ox
98.1 F 61 18 141/80 96
01/23/25 07:20 01/23/25 09:19 01/23/25 07:20 01/23/25 09:19 01/23/25 09:20
GEN: NAD, AAO x 3
HEENT: EOMI, MMM
LUNGS: RA. CTAB/L without wheeze or rales
CV: SR on telemetry. Reg, S1/S2, no murmur
ABD: ND
EXT: No edema B/L LE
NEURO: Gross non-focal
SKIN: No rash
Lab Results
01/23/25 06:22
Troponin I < 0.012 ng/ml 01/23/25 06:22
Oor-O-Hmqdgqqmcet Pept 1330 pg/ml 01/22/25 10:20
Impression / Plan
-
PCP: Dr. Ozzy Escalona
Cardiology: Previously saw cardiology at the [place] office
Impression:
Admitted with chest pain and SOB 01/22/2025
FULTON
Chest pain
Serially normal troponin levels
Prediabetes and hyperglycemia
Essential tremor
Echo 01/23/2025: EF 55 to 60%, no WMA, mild concentric LVH
Plan:
-Patient came to the ER yesterday with complaints of FULTON and chest pressure prompting admission and cardiology consultation. Patient came to the ER yesterday for episodes of FULTON, SOB and chest pressure. Patient reports he had a normal day on
Tuesday and then while sleeping on Tuesday night into Tuesday he awoke to empty his bladder, which is not unusual for him, and when he ambulated back to bed he became profoundly SOB and laid in bed trying to catch his breath. No chest pain with that
episode, but it took him almost an hour before his breathing returned to normal and he eventually fell asleep. When the patient woke up yesterday, Tuesday, he had FULTON with all activity and then started with episodes of chest pressure radiating from
his neck/jaw down into the left shoulder and chest. He has never had symptoms like this before. Patient then started with resting SOB while driving into work. 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
he came to the ER for evaluation. Patient was just hunting in [place] last week which included climbing, hiking and long walks without any symptoms of chest pain or SOB. He never has symptoms like this and it is unusual for him. Troponin level
normal x 5. ECG without acute ischemic change. Patient was admitted. Patient had intermittent episodes of chest discomfort overnight and has ongoing FULTON whenever he shifts himself in bed. CT of the chest was negative for PE. proBNP was 1330,
but no evidence of acute HF on CXR or CT of chest.
-ECG reviewed by me is SR without acute ST changes
-Telemetry reviewed by me shows SR without arrhythmia.
-Patient has new onset FULTON/resting SOB and chest pressure, but troponin serially normal and ECG without acute ischemic change.
-Check echo, ordered by me and coordinated with the echo department for a more urgent study. Echo report now completed and summarized above by me shows preserved EF without WMA. No significant valve disease.
-Reviewed with patient proceeding with inpatient exercise nuclear stress test to assess his symptoms. If patient has a clinical change would consider cardiac catheterization as an initial step, but for now stress test seems the next most
appropriate step.
-Check CVE, patient was not taking a statin prior to admission.
-Patient takes propranolol 20 mg BID for his history of tremor.
-There is evidence of mild concentric LVH and patient noted to have HTN in the ER yesterday, but improved today. Will continue to follow and consider adding BP med pending stress test results.
-Patient has a history of prediabetes, check HgbA1c, ordered by me
[2025-01-23 09:55] LABS: Blood Urea Nitrogen 7 mg/dl (9-20); Calcium 9.0 mg/dl (8.4-10.2); Carbon Dioxide 30 mmol/L (22-30); Chloride 102 mmol/L (98-107); Estimated Creatinine Clearance 95 ml/min; Glucose 103 mg/dl (70-99); Potassium 4.1 mmol/L (3.5-5.1); Sodium 136 mmol/L (135-145); eGFR > 60.00
[2025-01-23 11:48] VITALS: BP 131/75
[2025-01-23 14:10] LABS: Glycohemoglobin (HgbA1c) 6.2 % (4.0-5.9)
[2025-01-23 15:08] VITALS: BP 144/77
--- NOTE | 2025-01-23 15:20 | W.PN.UPDATE ---
Documented by User: Keara Lin PA-C 01/23/25 15:20
Update Note
Progress Note Update
Updated patient in his room, his is sitting bedside. We reviewed results of echo that showed essentially preserved EF without WMA or significant valve disease. We again reviewed the troponin levels and his symptoms leading up to admission.
Patient is agreeable to exercise nuclear stress test in the morning. We reviewed stress testing process and patient is in agreement. Orders placed by me.

Documented by User: Satya Guillaume MD 01/23/25 17:21
Update Note
Progress Note Update
Updated patient in his room, his is sitting bedside. We reviewed results of echo that showed essentially preserved EF without WMA or significant valve disease. We again reviewed the troponin levels and his symptoms leading up to admission.
Patient is agreeable to pharmacologic nuclear stress test in the morning. We reviewed stress testing process and patient is in agreement. Orders placed by me.
[2025-01-23] MEDS: EDECRIN 50 MG IV (15:23)
[2025-01-23 19:18] VITALS: BP 126/73
[2025-01-23 23:11] VITALS: BP 116/72
[2025-01-24] VITALS (7 sets, daily range): BP systolic 104–144; BP diastolic 62–77
[2025-01-24] MEDS: LEXISCAN 0.4 MG IV (09:54)
--- NOTE | 2025-01-24 10:56 | PTCARENOTE ---
Pt in Cardiac Services for Lexiscan test, test completed by Cardiac Services team. This RN spoke with patient after test completed, pt offers no complaints at present, denies chest pain, denies SOB except with exertion (as upon admission). O2 sat
is 95% on room air. Report called to floor, refer to Cardiac Services Record for details.
[2025-01-24] MEDS: CLARITIN 10 MG PO (12:19)
[2025-01-24] MEDS: LOW STRENGTH ASPIRIN 81 MG PO (12:19)
[2025-01-24] MEDS: INDERAL 20 MG PO ×2 (12:19→20:01)
[2025-01-24] MEDS: LYRICA 50 MG PO ×3 (12:22→22:57)
--- NOTE | 2025-01-24 13:12 | W.PN.HOSP.TC ---
Today's Communication/Plan
-
IV Lasix, if no improvement cardio recommending cardiac cath.
Assessment / Plan
Assessment / Plan
Impression:
75-year-old male past medical history of prostate cancer status post prostatectomy, prediabetes, diverticulosis, diverticulitis, hyperlipidemia, osteoarthritis, lumbar stenosis, chronic neuropathy, obesity, essential tremor, presenting with left
anterior neck pressure which radiates down to the left upper chest that started yesterday as well as shortness of breath that only occurs with exertion. He denies any symptoms currently or at rest. He did have sweating last night. He did have
dizziness since yesterday. He denies any posterior neck pain. Denies nausea or vomiting. Denies swallowing dysfunction at this time. Denies numbness or tingling in the arms or legs. Denies swelling in the legs.
He had pain like this previously in the past which resolved on its own.
He denies smoking or alcohol use or drugs.
Seen by cardiology and underwent a stress test which showed:
Perfusion imaging does not show clear evidence of ischemia. Inferior defect seen which is most consistent with soft tissue attenuation.
Inconclusive ECG for ischemia given the pharmacological study.
Probably normal study.
Systolic function is normal. The ejection fraction is 57%.
Stress Risk is moderate risk study (1 - 3% PA or /year) due to pharmacologic agent used.
Recommending diuresis
Assessment/plan:
Chest pain
Currently asymptomatic; no tenderness on exam.
EKG: Normal sinus rhythm.
Troponin: Initial 0.013 peaked to 0.015 then back to baseline <0.012.
Plan:
aspirin.
Cardiology consulted
Echocardiogram shows:
1. Ejection fraction is 55-60% by visual assessment.
2. Indexed left atrial volume is mildly abnormal (35-41 ml/m2).
3. Mild concentric left ventricular hypertrophy.
Follows cardio recommendations
Patient never had cardiac cath but had a stress test done years ago.
12/4
Stress test showed
Perfusion imaging does not show clear evidence of ischemia. Inferior defect seen which is most consistent with soft tissue attenuation.
Inconclusive ECG for ischemia given the pharmacological study.
Probably normal study.
Systolic function is normal. The ejection fraction is 57%.
Stress Risk is moderate risk study (1 - 3% PA or /year) due to pharmacologic agent used.
Recommending diuresis
Acute CHF Exacerbation:
Patient has acute on chronic diastolic congestive heart failure
Patient presented with shortness of breath.
BNP level is elevated at 1330
Troponin level normal
Continue IV diuresing in form of Lasix 40 mg daily
Daily weight.
Strict I's and O's.
Consulted cardiology.
Echocardiogram shows:
1. Ejection fraction is 55-60% by visual assessment.
2. Indexed left atrial volume is mildly abnormal (35-41 ml/m2).
3. Mild concentric left ventricular hypertrophy.
Prostate Cancer (s/p Prostatectomy)
No acute issues.
Prediabetes
Not on medication; monitor.
Hemoglobin A1c 6.2
Diverticulosis / History of Diverticulitis
No acute symptoms.
Osteoarthritis
Continue naproxen.
Lumbar Stenosis / Chronic Neuropathy
Continue pregabalin.
Essential Tremor
Continue propranolol.
Obesity
Lifestyle modification counseling as appropriate.
CODE STATUS: Full code
DVT prophylaxis: Heparin
Diet: Regular diet
Disposition: IV Lasix, if no improvement cardio recommending cardiac cath.
Total time spent on today's encounter was 55 minutes which included time spent in counseling the patient/family regarding diagnosis and treatment plan as listed above, goals of care, and symptom management. Case was discussed with nursing staff,
specialists, and care coordinators/case management. All labs and imaging personally reviewed by me. Remainder the time spent in detailed review of previous records, lab data, imaging, and other medical provider documentation.
Anticipated Discharge: 24 - 48 hours
Subjective/Interval History
-
Date of Service: January 24, 2025
Patient seen and examined at bedside, denies any chest pain , shortness of breath Improved, no abdominal pain, no nausea, no vomiting, no diarrhea or constipation.
Discussed with at bedside.
Patient had a stress test done today
Objective Data
-
Vital Signs:
Vital Signs
Temp Pulse Resp BP Pulse Ox
97.8 F 63 18 135/75 93
01/24/25 12:12 01/24/25 12:19 01/24/25 12:12 01/24/25 12:19 01/24/25 08:33
I&O
01/23/25 01/24/25 01/25/25
06:59 06:59 06:59
Intake Total 480 / 480 1440 / 1440
Output Total 2100 / 2100
Balance 480 / 480 -660 / -660
Physical Exam
-
General: Well Developed, Well Nourished, No Apparent Distress and Comfortable
HEENT: Normocephalic, Atraumatic, Moist Mucous Membranes, No Ptosis, PERRLA and Nose Appears Normal
Respiratory: Rales, Rhonchi and Non Labored Respirations
Cardiac: Regular Rhythm and S1/S2
Breast: Deferred by me
GI: Soft, Nontender, Nondistended and Normal Bowel Sounds
Genito-urinary: No Costovertebral Tender
Musculoskeletal: No Clubbing, No Cyanosis and No Edema
Skin: Warm
Neuro: Awake, Alert, Oriented, AO x 3 and No Motor Deficits
Psych: Calm
--- NOTE | 2025-01-24 14:20 | W.PN.CARDCBS ---
Addendum entered and electronically signed by Satya Guillaume MD 01/24/25 18:24:
I saw and examined the patient on morning rounds.
The Commercial Accountant's note was reviewed and I agree with the note.
Comment: Briefly, 75-year-old man with no significant cardiovascular history presenting to the ER for evaluation of chest discomfort and dyspnea
It seems that his symptoms initially started as shortness of breath which came on the evening of 01/21/2025
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 At that time was also experiencing pressure in the shoulder/neck. He was admitted for possible ACS.
Troponin has been within normal limits x 5
ECGs here are not acutely ischemic
Underwent CTA with no evidence of PE
Echo with normal LV function and no regional wall motion abnormalities
Lexiscan nuclear stress test earlier today with no evidence of ischemia
Unfortunately patient continues to experience severe shortness of breath with even minor activity. It seems that by enlarge his chest discomfort has resolved. Would attempt a more aggressive diuresis to see if this improves his symptoms. We
discussed his remote sulfa allergy. It seems that more recently he was able to tolerate sulfa drugs. Plan for IV Lasix.
Would consider alternative causes of dyspnea
If symptoms persist can consider coronary angiography for definitive assessment of obstructive coronary disease
Discussed with his at bedside
Original Note:
Today's Communication / Plan
-
Lexiscan nuclear stress test today without obvious ischemia, will attempt to diurese with Lasix 40 mg IV daily
If no improvement with diuresis could consider cardiac catheterization to exclude CAD
Impression / Plan
-
PCP: Dr. Ozzy Escalona
Cardiology: Previously saw cardiology at the [facility] office
Impression:
Admitted with chest pain and SOB 01/22/2025
Possible acute HFpEF
FULTON
Chest pain
Serially normal troponin levels
Prediabetes and hyperglycemia
Essential tremor
Echo 01/23/2025: EF 55 to 60%, no WMA, mild concentric LVH
Lexiscan nuclear stress test 01/24/2025: Perfusion imaging does not show clear evidence of ischemia, inferior defect seen which is most consistent with soft tissue attenuation, probably normal study, EF 57%
Plan:
-Patient was admitted with chest pain and cardiology consulted on 01/22/2025
-Following serially normal troponin levels the patient completed a Lexiscan nuclear stress test on 01/24/2025 that showed no evidence of ischemia and overall preserved EF. Patient had symptoms during stress test with Lexiscan injection including SOB.
-Echo as noted above showed preserved EF without WMA.
-Symptoms could also be due to volume overload, proBNP was in the garcia zone at 1330 on admission. Patient was given a dose of Edecrin 50 mg IV x 1 on 01/23/2025 and reports on 01/24/2025 that an allergy to sulfa was mild in the past and he would like
to try Lasix 40 mg IV now and then daily to see if diuresis improves his symptoms.
-If patient fails to improve with attempts at IV diuresis could consider cardiac catheterization to more definitively exclude CAD.
-Check CVE, orders placed by me. Patient was not taking a statin prior to admission.
-Patient takes propranolol 20 mg BID for his history of tremor.
-There is evidence of mild concentric LVH, but patient is mostly normotensive. No changes for now.
- HgbA1c 6.2% which is consistent with his known prediabetes. Carbohydrate control continues to be recommended.
HPI: Patient came to the ER yesterday with complaints of FULTON and chest pressure prompting admission and cardiology consultation. Patient came to the ER yesterday for episodes of FULTON, SOB and chest pressure. Patient reports he had a normal day on
Tuesday and then while sleeping on Tuesday night into Tuesday he awoke to empty his bladder, which is not unusual for him, and when he ambulated back to bed he became profoundly SOB and laid in bed trying to catch his breath. No chest pain with that
episode, but it took him almost an hour before his breathing returned to normal and he eventually fell asleep. When the patient woke up yesterday, Tuesday, he had FULTON with all activity and then started with episodes of chest pressure radiating from
his neck/jaw down into the left shoulder and chest. He has never had symptoms like this before. Patient then started with resting SOB while driving into work. 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
he came to the ER for evaluation. Patient was just hunting in [place] last week which included climbing, hiking and long walks without any symptoms of chest pain or SOB. He never has symptoms like this and it is unusual for him. Troponin level
normal x 5. ECG without acute ischemic change. Patient was admitted. Patient had intermittent episodes of chest discomfort overnight and has ongoing FULTON whenever he shifts himself in bed. CT of the chest was negative for PE. proBNP was 1330,
but no evidence of acute HF on CXR or CT of chest.
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
Subjective
Date of Service: January 24, 2025
Patient has ongoing FULTON
Objective
Labs:
01/23/25 06:22
01/23/25 08:32
Labs
Hgb 15.3 g/dL (13.0-18.0) 01/23/25 06:22
Hct 45.0 % (39.0-52.0) 01/23/25 06:22
Plt Count 206 10^3/uL (130-400) 01/23/25 06:22
Sodium 136 mmol/L (135-145) 01/23/25 08:32
Potassium 4.1 mmol/L (3.5-5.1) 01/23/25 08:32
BUN 7 mg/dl (9-20) L 01/23/25 08:32
Creatinine 0.7 mg/dL (0.7-1.3) 01/23/25 08:32
Glucose 103 mg/dl (70-99) H 01/23/25 08:32
Troponins
01/22/25 01/22/25 01/22/25
10:20 13:18 19:14
Troponin I 0.013 < 0.012 0.015 D
01/23/25 01/23/25
00:42 06:22
Troponin I 0.014 < 0.012
Vital Signs and I&O:
Vital Signs
Temp Pulse Resp BP Pulse Ox
97.8 F 63 18 135/75 93
01/24/25 12:12 01/24/25 12:19 01/24/25 12:12 01/24/25 12:19 01/24/25 08:33
Vital Signs
Temp Pulse Resp BP Pulse Ox
97.8 F 63 18 135/75 93
01/24/25 12:12 01/24/25 12:19 01/24/25 12:12 01/24/25 12:19 01/24/25 08:33
Intake & Output
01/22/25 01/23/25 01/24/25 01/25/25
06:59 06:59 06:59 06:59
Intake Total 480 / 480 1440 / 1440
Output Total 2100 / 2100
Balance 480 / 480 -660 / -660
Physical Exam
Physical Exam
GEN: NAD, AAO x 3
LUNGS: RA. CTA B/L without wheeze
CV: SR on telemetry.
[2025-01-24 15:42] LABS: HDL Cholesterol 45 mg/dl; LDL Cholesterol, Calculated 102 mg/dl; Very Low Density Lipoprotein 27 mg/dl (0-30)
--- NOTE | 2025-01-24 16:41 | CM ---
Pt continues on IV Lasix. Pt is not a candidate for VN for Chf education. Pt works here at
Plan: DC to home, no needs
[2025-01-24] MEDS: LASIX 40 MG IV (18:53)
[2025-01-25] VITALS (8 sets, daily range): BP systolic 98–118; BP diastolic 64–73; PULSE 66–71; BMI 32.4
[2025-01-25 08:52] LABS: Hematocrit 50.0 % (39.0-52.0); Hemoglobin 17.1 g/dL (13.0-18.0); Mean Corp Hgb Conc. 34.2 g/dL (33.0-37.0); Mean Corpuscular Volume 88.2 fL (80.0-94.0); Platelet Count 221 10^3/uL (130-400); Red Cell Dist. Width 14.5 % (11.5-14.5)
[2025-01-25] MEDS: CLARITIN 10 MG PO (09:07)
[2025-01-25] MEDS: INDERAL 20 MG PO ×2 (09:08→22:04)
[2025-01-25] MEDS: LOW STRENGTH ASPIRIN 81 MG PO (09:08)
[2025-01-25] MEDS: LYRICA 50 MG PO ×3 (09:08→22:02)
[2025-01-25 09:14] LABS: Blood Urea Nitrogen 15 mg/dl (9-20); Calcium 9.2 mg/dl (8.4-10.2); Carbon Dioxide 31 mmol/L (22-30); Chloride 99 mmol/L (98-107); Estimated Creatinine Clearance 81 ml/min; Glucose 107 mg/dl (70-99); Potassium 4.0 mmol/L (3.5-5.1); Sodium 135 mmol/L (135-145); eGFR > 60.00
[2025-01-25] MEDS: LASIX 40 MG IV (09:17)
--- NOTE | 2025-01-25 11:08 | W.PN.HOSP.TC ---
Addendum entered and electronically signed by Harriet King MD 01/25/25 15:36:
Returned to patient's bedside, his was at the bedside as well, no longer having any headache or chest pain or neck pain. He did take Tylenol. CTh negative, troponin negative, CXR with no abnormality. He states the pain that he was having was
similar to the pain that brought him in but less severe. Head pressure/neck pressure/chest pain/dyspnea at the same, discussed with RN as well concern for patient having high anxiety at the time of his symptoms. Regarding the cervical spine MRI
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 This may be the cause of his symptoms, it is chronic. He will
need to see outpatient spinal surgery/neurosurgery.
Original Note:
Today's Communication/Plan
-
Chest pain recurred, also headache, CTh and CXR/troponin/EKG
Assessment / Plan
Assessment / Plan
75M with prostate CA s/p prostatectomy, osteoarthritis, lumbar stenosis, chronic neuropathy, presenting with left anterior neck pressure which radiates down to the left upper chest that started yesterday as well as shortness of breath that only
occurs with exertion.
Chest pain
Troponin negative, EKG NSR. Telemetry monitoring with no events.
Cardiology consulted, Lexiscan performed 01/24, negative for ischemia, EF 57%. Lipid panel WNL
Cardiology recommended trial of IV diuretic
Chest pain recurred 01/25, repeat troponin, CXR, EKG
Acute CHF Exacerbation, HFpEF
BNP level is elevated at 1330
Unclear trigger
Continue IV Lasix 40 mg daily
Daily weight.
Strict I's and O's.
Echocardiogram shows EF 55-60%, Mild concentric LVH
Not on any GDMT
Headache/neck pain
No neurodeficits
Check CT head
Tylenol
Reviewed previous records, patient had MRI in February which showed cyst on C-spine
Prostate Cancer (s/p Prostatectomy)
Outpatient follow-up
Prediabetes
Hgb A1c 6.2%, outpatient follow-up with PCP
Consider SGLT2i given HFpEF
Lumbar Stenosis / Chronic Neuropathy
pregabalin.
Essential Tremor
propranolol
DVT PPx
Heparin SC
Anticipated Discharge: 24 - 48 hours
Subjective/Interval History
-
Date of Service: January 25, 2025
Patient seen in a.m., reported dyspnea with exertion even with conversation, denied chest pain. About 2 hours later started having pressure and had/neck/back with some lightheadedness some tightness in his chest, sweats. Symptoms improved except
for headache. Discussed with RN plan as documented.
Objective Data
-
Labs:
Laboratory Results
01/25/25
08:32
WBC 11.2 H
Hgb 17.1
Hct 50.0
Plt Count 221
Sodium 135
Potassium 4.0
Chloride 99
Carbon Dioxide 31 H
BUN 15
Creatinine 0.8
Glucose 107 H
Calcium 9.2
Vital Signs:
Vital Signs
Temp Pulse Resp BP Pulse Ox
98.1 F 66 16 113/68 92
01/25/25 07:53 01/25/25 07:53 01/25/25 07:53 01/25/25 09:17 01/25/25 07:53
I&O
01/24/25 01/25/25 01/26/25
06:59 06:59 06:59
Intake Total 1440 / 1440 960 / 960
Output Total 2100 / 2100 1000 / 1000
Balance -660 / -660 -40 / -40
Review of Systems
-
History Source: Patient
All other systems: Reviewed and negative
Physical Exam
-
General: No Apparent Distress
HEENT: Moist Mucous Membranes, Anicteric and PERRLA
Respiratory: Clear to Auscultation; Negative Wheezes, Rales or Rhonchi
Cardiac: Regular Rhythm and S1/S2; Negative Murmur, Rub or Gallop
GI: Soft, Nontender, Nondistended and Normal Bowel Sounds
Musculoskeletal: No Edema
Skin: Warm and Dry; Negative Rash, Ulcers or Lesions
Neuro: Awake and AO x 3
Hematologic / Lymphatic: No Lymphadenopathy
Psych: Calm
Data Reviewed
-
CT Scan: Report Reviewed by me and Discussed with Patient
Labs: Labs Reviewed by me and Discussed with Patient
Old Records: Reviewed
[2025-01-25] MEDS: TYLENOL 650 MG PO (11:20)
[2025-01-25 11:52] LABS: Troponin I < 0.012 ng/ml
--- NOTE | 2025-01-25 12:24 | W.PN.CARDCBS ---
Addendum entered and electronically signed by Meng Landin MD 01/25/25 15:49:
75-year-old man with chest discomfort and dyspnea, had CT scan of chest negative for pulmonary embolism, proBNP 1330, had sestamibi study with normal perfusion yesterday. Echocardiogram relatively unremarkable. Troponin has been negative.
PMH: Hyperglycemia, essential tremor, spinal fusion, total hip arthroplasty, prostatectomy current medications:
Medications: Lyrica 50 mg 3 times daily, subcu heparin, Inderal 20 mg twice daily, aspirin 81 mg a day, furosemide 40 mg IV twice daily
Episode this morning dyspnea he has neck tightness that feeling like 'his head is being inflated by a balloon.'
He has a history of rupturing both biceps tendons and has carpal tunnels, has undergone cervical laminectomy, low back pain no neuropathy
He feels as if furosemide has helped him
98/66, pulse 73, respiratory rate 16, Weight is 88.2 kg, similar to admission, peak weight was 92.1 kg
head neck exam unremarkable, lungs are clear, cardiac exam without obvious murmurs abdomen benign JVD okay, not much edema
White count 11.2, BUN and creatinine 15 and 0.8, potassium 4
ECG with symptoms: No acute changes
Impression:
Neck tightness/dyspnea
Possible HFpEF
Hyperglycemia
Essential tremor
Plan:
He has a perplexing complex of symptoms. No classic angina and based on sestamibi study I doubt that he has obstructive CAD. Not classic for reflux though if he were having globus pharyngeus related to GERD that could account for his presentation.
Will add PPI.
Coronary artery spasm seems relatively unlikely.
If he is having new onset HFpEF that could explain episodic dyspnea, and it is interesting that he has ruptured both biceps and has had a laminectomy and also bilateral carpal tunnels. ATTR cardiomyopathy is a potential consideration. We can check
an echo with strain.
For now continue IV furosemide. Would be reluctant to send him for cardiac catheterization. If he seems relatively stable he could potentially be discharged tomorrow.
Original Note:
Today's Communication / Plan
-
Symptomatically improved from shortness of breath standpoint with IV diuresis, continue diuresis
Renal function electrolytes stable
Episode of left-sided neck pain as well as tightness in head of unclear etiology
Check orthostatic vitals
Impression / Plan
-
PCP: Dr. Ozzy Escalona
Cardiology: Previously saw cardiology at the [place] office
Impression:
Admitted with chest pain and SOB 01/22/2025
Possible acute HFpEF
FULTON
Chest pain
Serially normal troponin levels
Prediabetes and hyperglycemia
Essential tremor
Echo 01/23/2025: EF 55 to 60%, no WMA, mild concentric LVH
Lexiscan nuclear stress test 01/24/2025: Perfusion imaging does not show clear evidence of ischemia, inferior defect seen which is most consistent with soft tissue attenuation, probably normal study, EF 57%
Plan:
-Patient was admitted with chest pain and cardiology consulted on 01/22/2025
-Troponin has been within normal limits x 6. ECGs here are not acutely ischemic
-Underwent CTA 01/22/25 with no evidence of PE or dissection. 'There are likely coronary artery calcifications, limited by contrast.'
-Echo 01/23/2025 with normal LV function and no regional wall motion abnormalities
-Lexiscan nuclear stress test 01/24/2025 with no evidence of ischemia and overall preserved EF
-Symptoms could also be due to volume overload, proBNP was in the garcia zone at 1330 on admission. Attempt of diuresis with Edecrin 50 mg IV x 1 on 01/23/2025 and reported allergy to sulfa was mild in the past. Patient has received 2 doses of Lasix
01/24 and 01/25/2025. BUN/creatinine stable 15/0.8 and stable electrolytes. Weight on admission reported both at 195 and 203. Current weight 194 on bed scale. Should repeat standing scale.
-Patient does note symptomatic improvement of shortness of breath with IV diuresis.
-Lipids 01/23/2025 prestatin TC 174, HDL 45, LDL 102, triglycerides 136
-Patient takes propranolol 20 mg BID for his history of tremor.
-There is evidence of mild concentric LVH, but patient is mostly normotensive. No changes for now.
- HgbA1c 6.2% which is consistent with his known prediabetes. Carbohydrate control continues to be recommended.
-Per Nursing and patient report around 11 AM on 01/25 he had an episode where he felt throbbing in his neck then had a tightness in his head and felt his eyes a little watery but denied visual changes, feeling of syncope. He went for head CT which
was unremarkable as well as chest x-ray that showed no acute abnormality. I personally reviewed telemetry starting at 10:55 am to 11:15 am and there was no associated arrhythmias or heart rate variations. Patient currently feels back to baseline.
Patient does report he had an MRI of brain in 2023 that showed cervical disc disease. Per review of MRI January 2025 this demonstrated severe degenerative disc at C3/C4 and C4/C5 with large disc osteophyte causing moderate spinal cord compression
and central canal stenosis. He also had MRI of cervical spine in February 2024 which showed ovoid cyst in upper cervical spine posterior to the dens and light left lateral mass of C1 measuring 9 x 5 mm without mass effect. As well as moderate
spinal canal stenosis of C3/C4 and C4/C5. Possibly this is being exacerbated by lying in bed for several days. Defer treatment to hospitalist service
- Check orthostatic vitals
-
HPI01/22/2025:
Patient came to the ER yesterday with complaints of FULTON and chest pressure prompting admission and cardiology consultation. Patient came to the ER yesterday for episodes of FULTON, SOB and chest pressure. Patient reports he had a normal day on
Tuesday and then while sleeping on Tuesday night into Tuesday he awoke to empty his bladder, which is not unusual for him, and when he ambulated back to bed he became profoundly SOB and laid in bed trying to catch his breath. No chest pain with that
episode, but it took him almost an hour before his breathing returned to normal and he eventually fell asleep. When the patient woke up yesterday, Tuesday, he had FULTON with all activity and then started with episodes of chest pressure radiating from
his neck/jaw down into the left shoulder and chest. He has never had symptoms like this before. Patient then started with resting SOB while driving into work. 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
he came to the ER for evaluation. Patient was just hunting in [place] last week which included climbing, hiking and long walks without any symptoms of chest pain or SOB. He never has symptoms like this and it is unusual for him. Troponin level
normal x 5. ECG without acute ischemic change. Patient was admitted. Patient had intermittent episodes of chest discomfort overnight and has ongoing FULTON whenever he shifts himself in bed. CT of the chest was negative for PE. proBNP was 1330,
but no evidence of acute HF on CXR or CT of chest.
Progress Note - Laminator Hand
Subjective
Date of Service: January 25, 2025
Patient seen and examined. Patient resting comfortably in bed. Nursing and patient report around 11 AM he had an episode where he felt throbbing in his neck then had a tightness in his head and felt his eyes a little watery but denied visual
changes, feeling of syncope. He went for head CT which was unremarkable as well as chest x-ray that showed no acute abnormality. I personally reviewed telemetry starting at 10:55 am to 11:15 am and there was no associated arrhythmias or heart rate
variations. Patient currently feels back to baseline
Patient does report symptomatically he feels better with diuresis
Objective
Labs:
01/25/25 08:32
01/25/25 08:32
Labs
Hgb 17.1 g/dL (13.0-18.0) 01/25/25 08:32
Hct 50.0 % (39.0-52.0) 01/25/25 08:32
Plt Count 221 10^3/uL (130-400) 01/25/25 08:32
Sodium 135 mmol/L (135-145) 01/25/25 08:32
Potassium 4.0 mmol/L (3.5-5.1) 01/25/25 08:32
BUN 15 mg/dl (9-20) 01/25/25 08:32
Creatinine 0.8 mg/dL (0.7-1.3) 01/25/25 08:32
Glucose 107 mg/dl (70-99) H 01/25/25 08:32
Troponins
01/22/25 01/22/25 01/23/25
13:18 19:14 00:42
Troponin I < 0.012 0.015 D 0.014
01/23/25 01/25/25
06:22 11:20
Troponin I < 0.012 < 0.012
Vital Signs and I&O:
Vital Signs
Temp Pulse Resp BP Pulse Ox
98.1 F 73 16 98/66 93
01/25/25 10:52 01/25/25 10:52 01/25/25 10:52 01/25/25 10:52 01/25/25 10:52
Vital Signs
Temp Pulse Resp BP Pulse Ox
98.1 F 73 16 98/66 93
01/25/25 10:52 01/25/25 10:52 01/25/25 10:52 01/25/25 10:52 01/25/25 10:52
Intake & Output
01/23/25 01/24/25 01/25/25 01/26/25
06:59 06:59 06:59 06:59
Intake Total 480 / 480 1440 / 1440 960 / 960
Output Total 2100 / 2100 1000 / 1000
Balance 480 / 480 -660 / -660 -40 / -40
Physical Exam
Physical Exam
GEN: No distress, awake, Ox3
HEENT: supple, anicteric, mmm
LUNGS: CTA, no wheezes/rales
CV: Reg, S1/S2, no murmur, rub or gallop
ABD: soft, BS+, NT/ND
EXT: No edema, clubbing or cyanosis
NEURO: Gross non-focal
SKIN: No rash, warm, dry, pink
[2025-01-25] MEDS: PROTONIX 40 MG PO (17:02)
[2025-01-26 03:22] VITALS: BP 101/50
[2025-01-26 06:00] VITALS: BMI 32.2
[2025-01-26 07:41] VITALS: BP 121/70
[2025-01-26 07:42] LABS: Hematocrit 50.2 % (39.0-52.0); Hemoglobin 16.9 g/dL (13.0-18.0); Mean Corp Hgb Conc. 33.7 g/dL (33.0-37.0); Mean Corpuscular Volume 87.6 fL (80.0-94.0); Platelet Count 210 10^3/uL (130-400); Red Cell Dist. Width 14.4 % (11.5-14.5)
[2025-01-26 08:18] LABS: Blood Urea Nitrogen 18 mg/dl (9-20); Calcium 9.1 mg/dl (8.4-10.2); Carbon Dioxide 32 mmol/L (22-30); Chloride 98 mmol/L (98-107); Estimated Creatinine Clearance 72 ml/min; Glucose 96 mg/dl (70-99); Potassium 4.6 mmol/L (3.5-5.1); Sodium 134 mmol/L (135-145); eGFR > 60.00
--- NOTE | 2025-01-26 08:32 | W.PN.CARDCBS ---
Today's Communication / Plan
-
Okay for discharge, see below
Impression / Plan
-
PCP: Dr. Ozzy Escalona
Cardiology: Previously saw cardiology at the [facility]
Impression:
Admitted with chest pain and SOB 01/22/2025
Possible acute HFpEF
FULTON
Chest pain
Serially normal troponin levels
Prediabetes and hyperglycemia
Essential tremor
Echo 01/23/2025: EF 55 to 60%, no WMA, mild concentric LVH
Echo with strain 01/25/2025: Reduced global longitudinal strain, -9.3% with relative sparing around the apex, could be potentially consistent with ATTR cardiomyopathy
Lexiscan nuclear stress test 01/24/2025: Perfusion imaging does not show clear evidence of ischemia, inferior defect seen which is most consistent with soft tissue attenuation, probably normal study, EF 57%
Plan:
He looks well, okay for discharge.
Echo with strain could be consistent with ATTR cardiomyopathy.
We will arrange for outpatient screening for ATTR.
Recommended cardiac medications at discharge:
Furosemide 40 mg a day
Jardiance 10 mg a day (patient instructed not to take if cost prohibitive)
Spironolactone 12.5 mg a day
Propranolol is for tremor
Please check BMP in 1 week
We will arrange for cardiac follow-up
-
HPI01/22/2025:
Patient came to the ER yesterday with complaints of FULTON and chest pressure prompting admission and cardiology consultation. Patient came to the ER yesterday for episodes of FULTON, SOB and chest pressure. Patient reports he had a normal day on
Tuesday and then while sleeping on Tuesday night into Tuesday he awoke to empty his bladder, which is not unusual for him, and when he ambulated back to bed he became profoundly SOB and laid in bed trying to catch his breath. No chest pain with that
episode, but it took him almost an hour before his breathing returned to normal and he eventually fell asleep. When the patient woke up yesterday, Tuesday, he had FULTON with all activity and then started with episodes of chest pressure radiating from
his neck/jaw down into the left shoulder and chest. He has never had symptoms like this before. Patient then started with resting SOB while driving into work. 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
he came to the ER for evaluation. Patient was just hunting in [place] last week which included climbing, hiking and long walks without any symptoms of chest pain or SOB. He never has symptoms like this and it is unusual for him. Troponin level
normal x 5. ECG without acute ischemic change. Patient was admitted. Patient had intermittent episodes of chest discomfort overnight and has ongoing FULTON whenever he shifts himself in bed. CT of the chest was negative for PE. proBNP was 1330,
but no evidence of acute HF on CXR or CT of chest.
Progress Note - Caramel Maker
Subjective
Date of Service: January 26, 2025:
75-year-old man with chest discomfort and dyspnea, had CT scan of chest negative for pulmonary embolism, proBNP 1330, had sestamibi study with normal perfusion yesterday. Echocardiogram relatively unremarkable. Troponin has been negative.
PMH: Hyperglycemia, essential tremor, spinal fusion, total hip arthroplasty, prostatectomy current medications:
Medications: Lyrica 50 mg 3 times daily, subcu heparin, Inderal 20 mg twice daily, aspirin 81 mg a day, furosemide 40 mg IV daily
Episode this morning dyspnea he has neck tightness that feeling like 'his head is being inflated by a balloon.'
He has a history of rupturing both biceps tendons and has carpal tunnels, has undergone cervical laminectomy, low back pain no neuropathy
He feels as if furosemide has helped him
121/70, pulse 65, respiratory rate 16, afebrile, weight is 87.7 kg, down 0.5 kg
Chest x-ray: Question vague infiltrate left base
Hemoglobin 16.9, white count 9.6, sodium 134, bicarbonate 32, BUN and creatinine are 18 and 0.6, troponin is negative
Objective
Labs:
01/26/25 06:53
01/26/25 06:53
Labs
Hgb 16.9 g/dL (13.0-18.0) 01/26/25 06:53
Hct 50.2 % (39.0-52.0) 01/26/25 06:53
Plt Count 210 10^3/uL (130-400) 01/26/25 06:53
Sodium 134 mmol/L (135-145) L 01/26/25 06:53
Potassium 4.6 mmol/L (3.5-5.1) 01/26/25 06:53
BUN 18 mg/dl (9-20) 01/26/25 06:53
Creatinine 0.9 mg/dL (0.7-1.3) 01/26/25 06:53
Glucose 96 mg/dl (70-99) 01/26/25 06:53
Troponins
01/25/25
11:20
Troponin I < 0.012
Vital Signs and I&O:
Vital Signs
Temp Pulse Resp BP Pulse Ox
36.4 C 65 16 121/70 93
01/26/25 07:41 01/26/25 07:41 01/26/25 07:41 01/26/25 07:41 01/26/25 07:41
Vital Signs
Temp Pulse Resp BP Pulse Ox
36.4 C 65 16 121/70 93
01/26/25 07:41 01/26/25 07:41 01/26/25 07:41 01/26/25 07:41 01/26/25 07:41
Intake & Output
01/24/25 01/25/25 01/26/25 01/27/25
07:59 07:59 07:59 07:59
Intake Total 1440 / 1440 960 / 960 1200 / 1200
Output Total 2100 / 2100 1000 / 1000 680 / 680
Balance -660 / -660 -40 / -40 520 / 520
Physical Exam
Physical Exam
See above
[2025-01-26] MEDS: INDERAL 20 MG PO (09:12)
[2025-01-26] MEDS: LYRICA 50 MG PO (09:12)
[2025-01-26] MEDS: LASIX 40 MG IV (09:12)
[2025-01-26] MEDS: LOW STRENGTH ASPIRIN 81 MG PO (09:13)
[2025-01-26] MEDS: CLARITIN 10 MG PO (09:13)
[2025-01-26] MEDS: PROTONIX 40 MG PO (09:13)
[2025-01-26 11:25] VITALS: BP 113/67
--- NOTE | 2025-01-26 12:47 | W.DCSUMMARY ---
Discharge Summary
Discharge Data
Date of Admission: 01/24/25
Date of Discharge: 01/26/25
Total time spent discharging patient (in min): 40 min
-
Pending Results: No
Hospital Course
Attending physician on day of discharge:
Harriet King MD
Discharge diagnosis:
Acute CHF exacerbation
Secondary diagnoses:
Chest pain
Head and neck pain
Lumbar stenosis with chronic neuropathy
Essential tremor
Consultations:
Cardiology
Procedures:
None
Hospital course:
75M with prostate CA s/p prostatectomy, osteoarthritis, lumbar stenosis, chronic neuropathy, presenting with left anterior neck pressure which radiates down to the left upper chest as well as shortness of breath that only occurs with exertion.
Patient had Lexiscan which did not show ischemia. Patient had echo which showed EF 55 to 60%, mild LVH. Patient was treated with IV Lasix with some improvement in dyspnea. Patient had recurrence of the chest pain, along with headache and neck
pain, while admitted, workup including CTh, CXR, troponin, EKG was negative. Patient underwent echo with strain, which had findings potentially consistent with ATTR cardiomyopathy. Cardiology recommended outpatient follow-up for screening for ATTR.
Diagnostic Findings:
Echo 01/23/2025: EF 55 to 60%, no WMA, mild concentric LVH
Echo with strain 01/25/2025: Reduced global longitudinal strain, -9.3% with relative sparing around the apex, could be potentially consistent with ATTR cardiomyopathy
Lexiscan nuclear stress test 01/24/2025: Perfusion imaging does not show clear evidence of ischemia, inferior defect seen which is most consistent with soft tissue attenuation, probably normal study, EF 57%
Physical exam on discharge:
Gen: NAD
HEENT: PERRLA, EOMI, MMM, neck supple
Cards: RRR, no M/G/R
Resp: Lungs CTAB, no W/R/R
GI: soft, NT/ND/NABS
MSK: No edema
Skin: warm and dry, no rash, ulcer or lesions
Heme: No LAD
Psych: Calm
Neuro: AAOx3
Discharge disposition:
Home
Discharge Plan
-
Referrals:
Ozzy Escalona DO [Family Provider, Family Practice]
Meng Landin MD [Active, Cardiology]
Referral Note: Our office will call to schedule appointment, possibly with one of our advanced practice professionals
Prescriptions:
No Action
propranolol 20 MG tablet
20 mg PO BID
fexofenadine [Oanh] 180 mg Tablet
180 mg PO DAILY
naproxen sodium [Aleve] 220 mg Tablet
440 mg PO DAILYPRN PRN (Reason: Back pain)
fluticasone propionate 50 mcg/actuation spray,suspension
1 spray INTRANASAL BID
pregabalin 50 mg capsule
50 mg PO TID
Discharge Date and Time
Print Language: [place]LAND[place]
== END 2025-01-26 15:31 | disposition home or self-care (01) | DRG 292 ==
LOC: 4 EAST ACU 13:11
PROVIDERS: General Practice; Nurse Practitioner; ADMITTING PHYSICIAN Hospitalist; ATTENDING PHYSICIAN Internal Medicine; EMERGENCY PHYSICIAN Emergency Medicine; FAMILY PHYSICIAN Family Medicine; OTHER PHYSICIAN Internal Medicine Cardiovascular Disease
PROC: 3E033HZ Introduction of Radioactive Substance into Peripheral Vein, Percutaneous Approach (ICD-10-PCS; 2025-01-24)
PROC: 4A12XM4 Monitoring of Cardiac Stress, External Approach (ICD-10-PCS; 2025-01-24)
DX: I50.33 Acute on chronic diastolic (congestive) heart failure (principal); E85.4 Organ-limited amyloidosis; I43 Cardiomyopathy in diseases classified elsewhere; R73.03 Prediabetes; M19.90 Unspecified osteoarthritis, unspecified site; M48.061 Spinal stenosis, lumbar region without neurogenic claudication; G62.9 Polyneuropathy, unspecified; E66.9 Obesity, unspecified; E78.5 Hyperlipidemia, unspecified; G25.0 Essential tremor; R73.9 Hyperglycemia, unspecified; Z96.653 Presence of artificial knee joint, bilateral; Z96.641 Presence of right artificial hip joint; Z90.79 Acquired absence of other genital organ(s); Z87.19 Personal history of other diseases of the digestive system; Z85.46 Personal history of malignant neoplasm of prostate; Z68.32 Body mass index [BMI] 32.0-32.9, adult; Z88.1 Allergy status to other antibiotic agents; Z88.0 Allergy status to penicillin; Z88.2 Allergy status to sulfonamides; Z98.1 Arthrodesis status; Z88.3 Allergy status to other anti-infective agents; Z79.899 Other long term (current) drug therapy
CPT/HCPCS: 70450; 71045; 71046; 71275; 78452; 80048; 80053; 80061; 83036; 83735; 83880; 84484; 85025; 85027; 93005; 93017; 93306; 93308; 99285; A9500; J2785; Q9967